=== PATIENT | male | born 1950 | race Caucasian/White ===

== ENCOUNTER → 2018-02-05 | Outpatient (REF) | LOC: ZLAB.WCH 14:30 | DX: Z01.89 Encounter for other specified special examinations (principal) ==

== ENCOUNTER → 2020-08-26 | Outpatient (CLI) | payer MEDICARE | LOC: COL.RAD 08:45 | DX: C61 Malignant neoplasm of prostate (principal) | CPT/HCPCS: A9503 ==

== ENCOUNTER → 2020-10-15 | Outpatient (CLI) | payer MEDICARE | LOC: COL.RAD 09:33 | DX: Z01.812 Encounter for preprocedural laboratory examination (principal); C61 Malignant neoplasm of prostate; E27.8 Other specified disorders of adrenal gland; M89.9 Disorder of bone, unspecified | CPT/HCPCS: Q9967 ==

== ENCOUNTER 2021-08-02 16:10 | Inpatient (IN) | payer MEDICARE ==
[~2021-08-02] VITALS: Ht 170.2 cm; Wt 98.7 kg
[2021-08-02 17:07] LABS: BASO % 0.6 % (0.0-2.0); EOS % 0.5 % (0.0-4.0); GRAN # 3.9 K/mm3 (1.4-6.5); GRAN % 59.4 % (42.2-75.2); HEMATOCRIT 50.9 % (42.0-52.0); HEMOGLOBIN 17.6 g/dl (13.5-18.0); LYMPH % 30.7 % (20.0-51.0); MEAN CELL VOLUME 85 fl (80.0-100.0); MEAN CORPUSCULAR HEMOGLOBIN 29 pg (27-31); MEAN CORPUSCULAR HGB CONC 35 g/dl (33.0-37.0); MEAN PLATELET VOLUME 11.3 fl (7.4-10.4); MONO # 0.6 K/mm3 (0.1-0.6); MONO % 8.6 % (1.7-9.3); PLATELET COUNT 151 K/mm3 (130-400); RED BLOOD COUNT 5.99 M/mm3 (4.20-5.60); REDCELL DISTRIBUTION WIDTH-CV 12.7 % (11.5-14.5)
[2021-08-02 17:14] LABS: INR 1.1 (0.8-3.0)
[2021-08-02 17:25] LABS: ALBUMIN 3.8 gm/dL (3.4-4.8); BILIRUBIN,TOTAL 1.1 mg/dL (0.2-1.2); CALCIUM 10.1 mg/dL (8.4-10.2); CREATININE, serum 1.38 mg/dL (0.72-1.25); POTASSIUM 3.3 mmol/L (3.5-4.5); TOTAL PROTEIN 7.8 gm/dL (6.2-8.1)
[2021-08-02 20:15] LABS: MAGNESIUM 1.5 mg/dL (1.6-2.6)
[2021-08-02 20:36] LABS: TSH w REFLEX 1.561 uIU/mL (0.350-4.940)
--- NOTE | 2021-08-02 21:18 | NUR ---
Received report from ROSA ISELA Brooks.
[2021-08-02 21:28] VITALS: BP 136/82; PULSE 81; TEMP 98.2
--- NOTE | 2021-08-02 21:28 | NUR ---
Patient arrives to ICU room 4 via ED stretcher. Patient is alert, oriented, and follows verbal commands. He is able to scoot self into ICU bed with minimal assistance. Initial vitals within normal limits. Arrives receiving Heparin at 1000 units/hr to a 20G peripheral IV to the left forearm and Cardene at 10 mg/hr to a 20G peripheral IV to the right forearm. Patient reports 2/10 dull pain to head and eyes, described as, "pressure." Denies needing PRN medication for pain management at this time. Bilateral feet noted to be dry, flaking, but otherwise intact. Groin area is reddened althought intact. Per patient, area is red due to chaffing. No other skin issues noted.
--- NOTE | 2021-08-02 22:00 | NUR ---
Patient's belongings include street clothes and shoes, a pair of glasses, a top denture plate, a wallet with no loose change or conrad inside, a cell phone, and a walker. Patient denies having hearing aids or any removable jewelry.
[2021-08-02] MEDS ORDERED: PROSCAR 5MG5 MG PO (22:07)
[2021-08-02] MEDS ORDERED: CELEBREX 1100 MG/CAP PO (22:07)
[2021-08-02] MEDS ORDERED: LIPITOR 10MG10 MG PO (22:08)
[2021-08-02] MEDS ORDERED: GLUCOPHAGE1000 MG PO (22:08)
[2021-08-02] MEDS ORDERED: NORVASC 10MG10 MG PO (22:08)
[2021-08-02] MEDS ORDERED: PROZAC 20MG20 MG PO (22:09)
[2021-08-02 22:35] VITALS: BP 145/94
[2021-08-03] VITALS (229 sets, daily range): BP systolic 132–157; BP diastolic 81–105; PULSE 68–79; TEMP 97.5–98.6; O2SAT 88–100
[2021-08-03 03:17] LABS: BASO % 0.2 % (0.0-2.0); EOS # 0.1 K/mm3 (0.0-0.7); EOS % 0.9 % (0.0-4.0); GRAN # 3.4 K/mm3 (1.4-6.5); GRAN % 54.2 % (42.2-75.2); HEMATOCRIT 44.8 % (42.0-52.0); LYMPH # 2.3 K/mm3 (1.2-3.4); LYMPH % 35.7 % (20.0-51.0); MEAN CELL VOLUME 84 fl (80.0-100.0); MEAN CORPUSCULAR HEMOGLOBIN 29 pg (27-31); MEAN CORPUSCULAR HGB CONC 35 g/dl (33.0-37.0); MEAN PLATELET VOLUME 10.8 fl (7.4-10.4); MONO # 0.6 K/mm3 (0.1-0.6); MONO % 8.8 % (1.7-9.3); PLATELET COUNT 123 K/mm3 (130-400); RED BLOOD COUNT 5.35 M/mm3 (4.20-5.60); REDCELL DISTRIBUTION WIDTH-CV 12.6 % (11.5-14.5)
[2021-08-03 03:31] LABS: CALCIUM 9.2 mg/dL (8.4-10.2); CREATININE, serum 1.25 mg/dL (0.72-1.25); MAGNESIUM 1.9 mg/dL (1.6-2.6)
[2021-08-03 03:33] LABS: HEMOGLOBIN 15.6 g/dl (13.5-18.0); POTASSIUM 2.6 mmol/L (3.5-4.5)
--- NOTE | 2021-08-03 09:43 | NUR ---
personal care worker attempted to contact patient via phone contact numbers listed and was unsuccessful. Attempt made to contact the patient's EC and got busy signal.
[2021-08-03 17:45] LABS: CALCIUM 9.4 mg/dL (8.4-10.2); CREATININE, serum 1.12 mg/dL (0.72-1.25); POTASSIUM 3.8 mmol/L (3.5-4.5)
[2021-08-04 00:33] VITALS: BP 152/95; PULSE 74; TEMP 99
[2021-08-04 04:15] VITALS: BP 163/108; PULSE 73; TEMP 99.1
[2021-08-04 06:30] LABS: CALCIUM 9.1 mg/dL (8.4-10.2); CHOLESTEROL RISK RATIO 3.7; CREATININE, serum 0.99 mg/dL (0.72-1.25); MAGNESIUM 1.6 mg/dL (1.6-2.6); POTASSIUM 3.4 mmol/L (3.5-4.5)
[2021-08-04 06:45] LABS: TROPONIN-I 0.061 ng/mL (0.00-0.033)
--- NOTE | 2021-08-04 07:00 | NUR ---
Critical troponin called to RHONDA Roberts, who read back the results.
[2021-08-04 07:17] VITALS: BP 175/102; PULSE 75; TEMP 99.3
--- NOTE | 2021-08-04 08:50 | NUR ---
ASSESSMENT COMPLETE FOR THIS SHIFT. PT RESTING IN BED SLEEPING. PT DENIED PAIN, PALPITATIONS, N,V,D, SOB OR DIZZINESS. PT ON HEPARIN DRIP. PT TOLERATING WELL. HEPARIN DRIP LEVEL RAISED THIS MORNING PER PROTOCOL. PT EXPRESSED NO OTHER NEEDS AT THIS TIME. CALL LIGHT WITHIN REACH.
[2021-08-04 11:02] VITALS: BP 144/99; PULSE 65; TEMP 98.3
--- NOTE | 2021-08-04 15:06 | NUR ---
Scheduled medications given. Shift assessment performed. Patient's BP elevated, Noam aware, BP medications adjusted. BP upon recheck was improved. All other VSS. Nursing Orders stated that patient had ACHS glucose checks, but no Insulin orders. Noam contacted, phone order repeat back for High scale Insulin recieved. Order placed. Patient is currently on RA. Denies any pain, discomfort, SOA, or further needs at this time. Call light in reach. Fall percuations in place. Patient A&O.
--- NOTE | 2021-08-04 16:14 | NUR ---
Circular Saw Filer contacted patient by room phone to discuss discharge planning. Patient lives alone in [place] and sees Dr. Azevedo for primary care. Patient states he cannot get to his appointment as he does not have transportation. Patient has medications mailed to him by [employer] and also has canes and walkers at home that he normally does not use. Patient reports independence with ADLS and plans to return home upon discharge. Patient states his friend Timothy will pick him up. Patient states his sister in law, Yanelis is his DPOA-HC. Patient is not and has eleven children that he is not in regular contact with. When asked to name his children, patient began mumbling and states they have their own lives. SW contacted Yanelis and left a message. CELESTE will follow up with Dr. Azevedo's office to discuss transportation resources. Discharge Plan: Home
[2021-08-04 16:16] VITALS: BP 129/84; PULSE 70; TEMP 98.2
[2021-08-04 21:06] VITALS: BP 146/79; PULSE 70; TEMP 98.4
[2021-08-05] VITALS (9 sets, daily range): BP systolic 121–168; BP diastolic 73–96; PULSE 63–78; TEMP 97.9–98.8
[2021-08-05 06:18] LABS: CALCIUM 9.6 mg/dL (8.4-10.2); CREATININE, serum 1.04 mg/dL (0.72-1.25); MAGNESIUM 1.6 mg/dL (1.6-2.6); POTASSIUM 3.7 mmol/L (3.5-4.5)
[2021-08-05] MEDS ORDERED: LOPRESSOR 550 MG/TAB PO (10:00)
[2021-08-05] MEDS ORDERED: LIPITOR 40MG TA40 MG PO (10:00)
[2021-08-05] MEDS ORDERED: ASPIRIN 81M81 MG/TA2 PO (10:01)
[2021-08-05] MEDS ORDERED: ZESTRIL 10MG10 MG PO (10:01)
[2021-08-05] MEDS ORDERED: NORVASC 10MG10 MG PO (10:40)
--- NOTE | 2021-08-05 11:13 | NUR ---
Policyholder Information Clerk collaborated with Carolina Policyholder Information Clerk at PCP office to discuss patient's transportation barriers. CELESTE then provided patient's RN, Carolina with a application for [facility] transport to provide to patient. Patient reported to his nurse he may have issues securing a ride home. CELESTE contacted patient's emergency contact number (ph#[phone]) and spoke with Basia who advised she is patient's nephew's girlfriend. Patient's nephew is Cornel (ph#[phone]). Basia advised they can give patient a ride at time of discharge. CELESTE then collaborated with Armando Cason who advised patient will likely need a med voucher for a ten day supply of new meds until [employer] is able to mail out patient's new medications.
--- NOTE | 2021-08-05 13:42 | NUR ---
Patient verbalized to his RN that with his history of "colon" cancer that he does not feel as if he can take care of himself at home and is wanting placed at an AL facility. Phone call made to RHONDA Bedolla to place a palliative consult. Goals of care needs to be addressed and there are conflicting reports to what type of cancer the patient has.
--- NOTE | 2021-08-05 14:05 | NUR ---
Phone call made to Dr. River nurse for clinical history
--- NOTE | 2021-08-05 15:46 | NUR ---
Call made to patient on room phone as he is under covid precautions. He states that he is concerned about getting someone sick since he has covid but really feels like he needs more help at home. He states he wants to go home but is also is open to SNF, AL, or home health but states he really just needs help with laundry and housekeeping. Patient reports that finances are a concern as he is on a limited income but also doesn't feel completely safe [place] Patient also reports he has no family around and minimal friends that would be able to help him move if that were something he wanted. I discussed the various levels of care and told him that I would work with SW to get him more specific options about nursing care or companionship once discharged. Notified SW of the discussion as well. Patient also confirmed that he has/had prostate cancer and saw Dr. Nowak but is not undergoing and active treatment and hasn't seen the doctor in a long time.
[2021-08-06 04:12] VITALS: BP 150/84; PULSE 66; TEMP 98.8
[2021-08-06 06:14] LABS: BASO % 0.6 % (0.0-2.0); EOS # 0.1 K/mm3 (0.0-0.7); EOS % 1.7 % (0.0-4.0); GRAN % 56.4 % (42.2-75.2); HEMATOCRIT 48.2 % (42.0-52.0); HEMOGLOBIN 16.6 g/dl (13.5-18.0); LYMPH # 2.3 K/mm3 (1.2-3.4); MEAN CELL VOLUME 86 fl (80.0-100.0); MEAN CORPUSCULAR HEMOGLOBIN 30 pg (27-31); MEAN CORPUSCULAR HGB CONC 34 g/dl (33.0-37.0); MEAN PLATELET VOLUME 11.6 fl (7.4-10.4); MONO # 0.6 K/mm3 (0.1-0.6); PLATELET COUNT 129 K/mm3 (130-400); RED BLOOD COUNT 5.62 M/mm3 (4.20-5.60); REDCELL DISTRIBUTION WIDTH-CV 12.8 % (11.5-14.5)
[2021-08-06 06:18] LABS: CALCIUM 9.4 mg/dL (8.4-10.2); CREATININE, serum 1.03 mg/dL (0.72-1.25); POTASSIUM 3.7 mmol/L (3.5-4.5)
[2021-08-06 08:45] VITALS: BP 156/92; PULSE 70; TEMP 98.6
--- NOTE | 2021-08-06 09:10 | NUR ---
PT ASSESSED. NO COMPLAINTS OF PAIN OR DYSPNEA. NO SIGNS OR SYMPTOMS OF DISTRESS. CALL LIGHT WITHIN REACH
[2021-08-06 09:56] VITALS: BP 149/96; PULSE 65; TEMP 98
[2021-08-06 09:57] VITALS: BP 144/91; PULSE 71; TEMP 98
[2021-08-06 10:01] VITALS: BP 139/91; PULSE 78; TEMP 98
--- NOTE | 2021-08-06 10:53 | NUR ---
Patient discharging back home today with HH services through [facility]. Request made for Pt/OT and Skilled orders. Patient in need of perscription voucher for new medications ( Lipitor $10.67, Lopressor $10.89, Zestril $10.18, Aspirin Chewable $5.00 Total cost $36.74)- Medication voucher faxed to [facility] for 10 day supply due to the patient getting his medications through [facility]. New perscriptions faxed to [facility] at [phone] on behalf of hospitalistMadhu Flor ( his nephew's girlfriend) contacted who states that they are still able to pick this patient up today and can be at the hospital within 30 minutes. Patient's RN notified of the above and is agreeable. Discharge plan: Home with [facility] HH; Medication voucher for new perscriptions faxed to [employer].
--- NOTE | 2021-08-06 11:50 | NUR ---
PT DISCHARGE TEACHING COMPLETE. ALL QUESTIONS ANSWERED. IV REMOVED X2. INSTRUCTIONS GIVEN FOR MEDICATIONS AND COLLOW UP APPOINTMENTS.
== END 2021-08-06 11:52 | disposition home health service (06) | DRG 280 ==
LOC: COL.ER 16:10 → ICU 19:47 → MEDICAL 08-03 17:15
PROVIDERS: Family Medicine; Internal Medicine Pulmonary Disease; Student in an Organized Health Care Education/Training Program; ADMIT Internal Medicine
DX: I16.0 Hypertensive urgency (principal); U07.1 COVID-19; I21.A1 Myocardial infarction type 2; N17.9 Acute kidney failure, unspecified; I10 Essential (primary) hypertension; E11.9 Type 2 diabetes mellitus without complications; E78.5 Hyperlipidemia, unspecified; N40.0 Benign prostatic hyperplasia without lower urinary tract symptoms; G89.29 Other chronic pain; M54.50 Low back pain, unspecified; E87.6 Hypokalemia; K21.9 Gastro-esophageal reflux disease without esophagitis; F32.A Depression, unspecified; Z85.46 Personal history of malignant neoplasm of prostate; Z87.891 Personal history of nicotine dependence; Z79.84 Long term (current) use of oral hypoglycemic drugs
CPT/HCPCS: OP; 99232-AI; 99233-AI; 99239; G0378; J1644; J1650; J2550; J3475; J3480; J7030; J7040; J7050; Q9967

== ENCOUNTER 2022-08-16 03:55 | Inpatient (IN) | payer MEDICARE, MEDICAID ==
[~2022-08-16] VITALS: Ht 170.2 cm; Wt 102.1 kg
[2022-08-16] VITALS (7 sets, daily range): BP systolic 170–197; BP diastolic 89–113; PULSE 80–102; TEMP 97.8–98.7
[~2022-08-16 03:55] MED LIST: ASPIRIN 81M81 MG/TA2 PO; CELEBREX 1100 MG/CAP PO; GLUCOPHAGE1000 MG PO; LIPITOR 10MG10 MG PO; LIPITOR 40MG TA40 MG PO; LOPRESSOR 550 MG/TAB PO; NORVASC 10MG10 MG PO; PROSCAR 5MG5 MG PO; PROZAC 20MG20 MG PO; ZESTRIL 10MG10 MG PO
[2022-08-16 04:31] LABS: BASO % 0.2 % (0.0-2.0); EOS # 0.1 K/mm3 (0.0-0.7); EOS % 0.6 % (0.0-4.0); GRAN # 11.4 K/mm3 (1.4-6.5); GRAN % 84.3 % (42.2-75.2); LYMPH % 7.4 % (20.0-51.0); MEAN CELL VOLUME 86 fl (80.0-100.0); MEAN CORPUSCULAR HEMOGLOBIN 30 pg (27-31); MEAN CORPUSCULAR HGB CONC 35 g/dl (33.0-37.0); MEAN PLATELET VOLUME 10.8 fl (7.4-10.4); MONO % 7.1 % (1.7-9.3); PLATELET COUNT 146 K/mm3 (130-400); RED BLOOD COUNT 5.01 M/mm3 (4.20-5.60); REDCELL DISTRIBUTION WIDTH-CV 13.1 % (11.5-14.5)
[2022-08-16 04:45] LABS: INR 1.1 (0.8-3.0); PROTHROMBIN TIME 12.9 SECONDS (9.7-12.8)
[2022-08-16 04:47] LABS: ALBUMIN 3.4 gm/dL (3.4-4.8); BILIRUBIN,TOTAL 0.8 mg/dL (0.2-1.2); CALCIUM 10.4 mg/dL (8.4-10.2); CREATININE, serum 1.47 mg/dL (0.72-1.25); POTASSIUM 3.1 mmol/L (3.5-4.5)
[2022-08-16 04:58] LABS: TROPONIN-I 0.042 ng/mL (0.00-0.033)
[2022-08-16 05:58] LABS: COLLECTION METHOD CLEAN CATCH
[2022-08-16 06:09] LABS: PH 6.5 (5.0-8.5); URINE APPEARANCE Clear (CLEAR/HAZY); URINE COLOR Yellow (YELLOW)
[2022-08-16 06:10] LABS: URINE BLOOD TRACE-INTACT (NEGATIVE); URINE GLUCOSE 1+ (NEGATIVE); URINE KETONE Negative (NEGATIVE); URINE NITRATE Negative (NEGATIVE); URINE PROTEIN(semi-quant) 1+ (NEGATIVE); URINE UROBILINOGEN 0.2 E.U/dL (0.2-1.0)
[2022-08-16 06:23] LABS: SQUAMOUS EPITHELIAL None Seen /hpf (0-10); URINE BACTERIA None Seen /hpf (NONE SEEN); URINE RBC 0-2 /hpf (0-2)
--- NOTE | 2022-08-16 09:29 | NUR ---
Patient arrived to the unit from ER at 0908. Patient alert and oriented. Patient moaning in severe pain and c/o pain at right hip. Patient sustained a fall this morning. Patient has history of HTN, high cholestrol and have had back surgery and head injury.Noted bruise on the right hip from fall. Patient oriented to room and the use of call brooks. Patient instructed to stay in bed and call for help when needed. Patient rated pain level 10/10.
--- NOTE | 2022-08-16 09:55 | NUR ---
Patient c/o severe pain at right hip and rated pain level 10/10. Morphine 2mg administered per PRN order for pain. See e-mar for documentation.
--- NOTE | 2022-08-16 11:26 | NUR ---
Apresoline administered for elevated B/P of 179/90. Patient reports of decrease in pain level. Patient rated pain level 4/10. Will continue to monitor patient.
--- NOTE | 2022-08-16 12:31 | NUR ---
Patient in bed moaning and screaming in pain. Patient c/o severe pain at right hip. Morphine administered per prn orders. Will reassess pain level. Call brooks within reach.
--- NOTE | 2022-08-16 12:44 | NUR ---
Patient still screamning and moaning in pain states "medicine doesn't work and in severe pain". Dr. Pompa was notified and ordered to give PRN roxicodone. 10mg of roxicodone administered. See e-mar for documentation. Will continue to monitor patient's pain level. Call brooks within reach.
--- NOTE | 2022-08-16 13:20 | NUR ---
I called to follow up on order for patient having Echo done before surgery. records tech states that they are on their way to patient's room.
--- NOTE | 2022-08-16 13:29 | NUR ---
agriculture laboratory technician at the bedside at 13:28.
--- NOTE | 2022-08-16 17:04 | NUR ---
Patient c/o pain at right hip , morphine administered per orders. See e-mar for documentation.
--- NOTE | 2022-08-16 18:32 | NUR ---
Patient has elevated B/P of 197/113, Kenzie Ty notified. PRN Apresoline administered at 1825. Will recheck B/P. Patient resting in bed and not in any distress. Call brooks within reach. Regular served, patient states he is not hungry at the moment and will eat later.
--- NOTE | 2022-08-16 19:40 | NUR ---
PT MOANING IN PAIN, TRIES TO MOVE RT LEG CAUSING SEVERE PAIN. REMINDED PT HIS HIP IS FRACTURED. OXYCODONE 10MG PO NOW. IVF TO LT WRIST. PT VOIDING PER URINAL.
--- NOTE | 2022-08-16 20:30 | NUR ---
DR BUTLER ROUNDS ON PT, ASKS THAT PT REPORTS HE HAS LOSS OF BALANCE EVERY 2-3 DAYS BE DOCUMENTED AND REPORTED TO HOSPITALISTS.
--- NOTE | 2022-08-16 21:04 | NUR ---
PT COMPLAINS OF CONSTANT PAIN TO RT HIP. OFFERED WYLIE CATHETER SO PT DIDN'T HAVE TO MOVE TO VOID, REFUSES AT THIS TIME. MEDICATED WITH MORPHINE 2MG IVP GIVEN FOR PAIN.
[2022-08-17] VITALS (13 sets, daily range): BP systolic 100–182; BP diastolic 64–93; PULSE 72–97; TEMP 97.8–99.1
--- NOTE | 2022-08-17 00:13 | NUR ---
PT MOANING IN PAIN. STILL TRYING TO MOVE LEG. MEDICATED WITH OXYCODONE 10MG PO AND MORPHINE 2MG IVP AT THIS TIME.
--- NOTE | 2022-08-17 01:15 | NUR ---
SPOKE WITH GARY GUTIERRES REGARDING PT CONTINUED COMPLAINT OF PAIN. NEW ORDER TO DC MORPHINE, DILAUDID 0.5MG Q2 PRN.
--- NOTE | 2022-08-17 01:20 | NUR ---
DILAUDID 0.5MG IVP GIVEN, NEW ICE PACK PLACED TO RT HIP. STRONGLY ENCOURAGED PT TO STOP TRYING TO MOVE RT LEG D/T FRACTURE. IS NPO FOR POSSIBLE SURGERY.
--- NOTE | 2022-08-17 02:00 | NUR ---
PT RESTING QUIETLY AT THIS TIME.
--- NOTE | 2022-08-17 03:19 | NUR ---
PT MOANING IN PAIN, DILAUDID 0.5MG IVP GIVEN AT THIS TIME.
[2022-08-17 07:26] LABS: BASO % 0.3 % (0.0-2.0); EOS # 0.6 K/mm3 (0.0-0.7); EOS % 4.3 % (0.0-4.0); GRAN # 10.5 K/mm3 (1.4-6.5); GRAN % 80.3 % (42.2-75.2); HEMATOCRIT 47.1 % (42.0-52.0); HEMOGLOBIN 15.8 g/dl (13.5-18.0); LYMPH # 1.1 K/mm3 (1.2-3.4); LYMPH % 8.6 % (20.0-51.0); MEAN CELL VOLUME 89 fl (80.0-100.0); MEAN CORPUSCULAR HEMOGLOBIN 30 pg (27-31); MEAN CORPUSCULAR HGB CONC 34 g/dl (33.0-37.0); MEAN PLATELET VOLUME 11.3 fl (7.4-10.4); MONO # 0.8 K/mm3 (0.1-0.6); MONO % 6.2 % (1.7-9.3); PLATELET COUNT 129 K/mm3 (130-400); REDCELL DISTRIBUTION WIDTH-CV 13.2 % (11.5-14.5)
[2022-08-17 07:54] LABS: CALCIUM 10.1 mg/dL (8.4-10.2); CREATININE, serum 1.1 mg/dL (0.72-1.25); POTASSIUM 3.4 mmol/L (3.5-4.5)
--- NOTE | 2022-08-17 09:20 | NUR ---
Pt. laying in bed. Pt. is A&OX3, assessment complete. IV to lt. wrist patent. Pt. reports pain at a 9 on pain scale after having dilaudid. Pt.'s BP is still elevated. Talked with Dr. Pompa on this. Giving am PO meds and will recheck BP. Also give oral pain medication. Pt. denies further needs, call light within reach.
--- NOTE | 2022-08-17 13:24 | NUR ---
Home Care Chaplain met with patient to attempt to discuss discharge planning. Patient had difficulty keeping his eyes open and was focused on the pain in his leg. Patient did answer a couple intake questions briefly. Patient lives alone in [place] and sees Dr. Azevedo for primary care. Patient denies having any current home health. Patient denies having DPOA-HC, but stated his friend Timothy is like a brother to him and a good contact. SW inquired about patient' sister in Yanelis chaudhari (ph#[phone]) but patient stated she has requested not to be contacted anymore. SW discussed the possibility of post acute rehab with patient who stated he plans to return home at time of discharge. Patient to have surgery today. CELESTE contacted Carolina, Home Care Chaplain at patient's primary care office who advised patient does not have Advance Directives. Patient's chart listed his sister in Yanelis chaudhari and niece, Zoe Calderon (ph#[phone]) as contacts. Carolina advised patient has [employer] as a secondary. CELESTE emailed financial team to seek clarification on if patient has traditional medicare vs a medicare advantage plan. CELESTE also provided ID number to patient's [employer] [place] plan. Discharge Plan: Surgery today, PT/OT to [facility]
--- NOTE | 2022-08-17 19:00 | NUR ---
PT DROWSY BUT WAKES TO NAME. ENC PT TO EAT SOME DINNER. HOB. IV NS AT 75CC/HR AND K+ PER PROTOCOL GIVEN. O2 4L O2 PER NC. SEE VITALS. PAIN TO RT HIP LEVE 09/08 AT THIS TIME. CALL LIGHT IN REACH. BED ALARM SET.
[2022-08-18] VITALS (7 sets, daily range): BP systolic 125–153; BP diastolic 74–87; PULSE 67–77; TEMP 97–98.8
--- NOTE | 2022-08-18 04:51 | NUR ---
NEW ICE PACK TO RT HIP. DRSG CDI. NO NEEDS AT THSI TIME. PAIN CONTROLLED.
[2022-08-18 06:17] LABS: BASO % 0.1 % (0.0-2.0); GRAN # 11.8 K/mm3 (1.4-6.5); HEMATOCRIT 40.9 % (42.0-52.0); HEMOGLOBIN 13.9 g/dl (13.5-18.0); LYMPH # 0.8 K/mm3 (1.2-3.4); MEAN CELL VOLUME 89 fl (80.0-100.0); MEAN CORPUSCULAR HEMOGLOBIN 30 pg (27-31); MEAN CORPUSCULAR HGB CONC 34 g/dl (33.0-37.0); MEAN PLATELET VOLUME 11.3 fl (7.4-10.4); MONO # 0.4 K/mm3 (0.1-0.6); MONO % 3.4 % (1.7-9.3); PLATELET COUNT 134 K/mm3 (130-400); RED BLOOD COUNT 4.61 M/mm3 (4.20-5.60); REDCELL DISTRIBUTION WIDTH-CV 13.2 % (11.5-14.5)
[2022-08-18 06:41] LABS: CALCIUM 9.7 mg/dL (8.4-10.2); CREATININE, serum 1.8 mg/dL (0.72-1.25); POTASSIUM 4.1 mmol/L (3.5-4.5)
--- NOTE | 2022-08-18 07:15 | NUR ---
Received shift report from the night nurseHilaria RN
--- NOTE | 2022-08-18 08:45 | NUR ---
Patient resting in bed alert and oriented. Tele monitor intact. Dressing to right thigh dry and intact. IVF infusing without difficulty. Patient encourage to use incentive spirometer as instructed. Patient verbalized understanding. Patient denies pain at this time.
--- NOTE | 2022-08-18 09:29 | NUR ---
Physical therapist at the bedside assisted patient to the recliner . Patient tolerated it well.
--- NOTE | 2022-08-18 09:36 | NUR ---
0635 Report recieved from primary nurse Zoe at this time. Discussed plan of care and care coordination with primary nurse Zoe. Gianna, student RN.
--- NOTE | 2022-08-18 09:42 | NUR ---
0700 Assessment completed (see Shift assessment). Patient denies pain at this time. Discussed plan of care, patient agreeable. All questions answered. Call light within reach. Will continue to monitor.
--- NOTE | 2022-08-18 09:45 | NUR ---
0700 Assessment completed of eyes. Left eye is nonreactive. Patient stated "my left eye doesn't work because my blood pressure took it out a few years ago". Patient right eye is reactive to light, round and accommodates.
--- NOTE | 2022-08-18 13:26 | NUR ---
Brush Holder Assembler met with patient to review discharge plan. PT is recommending IPR and patient is agreeable to this. SW also spoke with patient about creating DPOA-HC. Patient is interested in this but would like time to consider who he would appoint. SW collaborated with Deb to verify patient has Medicare A/B, with a [employer] prescription plan. SW gave referral to IPR. Annita, IPR Director can accept whenever patient is medically ready. Discharge Plan: IPR
--- NOTE | 2022-08-18 13:32 | NUR ---
Patient refused to eat lunch stating that he's not hungry and will wait for dinner.
[2022-08-18] MEDS ORDERED: XALATAN EYE DROPS OD (14:41)
--- NOTE | 2022-08-18 18:47 | NUR ---
Patient sitting in bed eating dinner, c/o headache. Patient states headache is due to not eaten lunch. VSS stable and not in any distress. Patient encourgage to eat dinner.
--- NOTE | 2022-08-18 20:00 | NUR ---
PT RESTING IN BED. A&OX4. IV D5LR AT 75CC/HR TO RT HAND. NO RESP DISTRESS. ATTEMPTED TO INSTRUCTOPER WAY TO USE INCENETIVE SPIROMETER. AFTER PT RAPIDLY INHALED SEVERAL TIMES. NURSE DEMONSTRATED USE. PT REALATED "MANOHAR BEEN BREATHING JUST FINE FOR 70 YRS AND I DONT NEED ANYONE TO SHOW ME. PROVIDED RATIONALE. PT REFUSED. RT HIP DRSG CDI. DARK ECCYMOSIS NOTED UNDER DRSG. MADISON JOHNNY AND SCD'D ON. PLACED NEW ICE PACK TO RT HIP. PAIN UNDER CONTROL AT THIS TIME. CALL LIGHT IN REACH. BED ALARM SET FOR FALL PRECAUTIONS.
--- NOTE | 2022-08-19 03:25 | NUR ---
IVF'S DC'D. TAKING PO FLUIDS WELL. VOIDING MOD AMTS. CALLED MIGUEL BALLESTEROS FOR PT'S C/O "ITCHING ALL OVER" PER SENIOR EXECUTIVE ASSISTANT REPORT. NEW ORDER FOR JOSEPH. SEE MAR.
[2022-08-19 03:48] VITALS: BP 164/88; PULSE 65; TEMP 98.7
--- NOTE | 2022-08-19 07:26 | NUR ---
Received shift report from the night nurseHilaria RN
[2022-08-19 07:44] VITALS: BP 174/78; PULSE 74; TEMP 97.7
--- NOTE | 2022-08-19 09:04 | NUR ---
Patient up walking from the bed to the recliner with physical therapist design assistant. Assessment performed, gauze dressing to the right hip dry and intact. Patient denies pain at this time. Patient's B/P elevated and apresoline administered per PRN orders. Will recheck patient's B/P. Call brooks within reach.
[2022-08-19 09:40] LABS: BASO % 0.3 % (0.0-2.0); EOS # 0.2 K/mm3 (0.0-0.7); EOS % 1.2 % (0.0-4.0); GRAN # 12.2 K/mm3 (1.4-6.5); GRAN % 83.3 % (42.2-75.2); HEMOGLOBIN 14.6 g/dl (13.5-18.0); LYMPH # 1.3 K/mm3 (1.2-3.4); LYMPH % 8.7 % (20.0-51.0); MEAN CELL VOLUME 92 fl (80.0-100.0); MEAN CORPUSCULAR HEMOGLOBIN 30 pg (27-31); MEAN CORPUSCULAR HGB CONC 33 g/dl (33.0-37.0); MEAN PLATELET VOLUME 11.3 fl (7.4-10.4); MONO # 0.8 K/mm3 (0.1-0.6); MONO % 5.6 % (1.7-9.3); PLATELET COUNT 153 K/mm3 (130-400); REDCELL DISTRIBUTION WIDTH-CV 13.3 % (11.5-14.5)
[2022-08-19 09:56] LABS: CREATININE, serum 1.54 mg/dL (0.72-1.25); POTASSIUM 4.2 mmol/L (3.5-4.5)
[2022-08-19 11:27] VITALS: BP 144/76; PULSE 62; TEMP 97.6
[2022-08-19 15:53] VITALS: BP 150/92; PULSE 67; TEMP 98.1
--- NOTE | 2022-08-19 17:45 | NUR ---
Patient resting in bed and awaken to eat dinner. Patient states he's not feeling hungry and does not want to eat dinner.
[2022-08-19 19:30] VITALS: BP 169/94; PULSE 75; TEMP 98
--- NOTE | 2022-08-19 21:28 | NUR ---
PT RESTING IN BED. REPOSITIONED TO TOP OF BED. BP 169/94. GAVE SCHEDULED METOPROLOL. PAIN CONTROLLED WITH SCHEDULE TYLENOL. BONNIE HOSE TAKEN OFF. SCD'S ON BILAT. CALL LIGHT IN REACH. BED ALARM SET.
--- NOTE | 2022-08-19 22:15 | NUR ---
PT AWAKE. PT RELATED HE'S "GOING CRAZY IN HERE". "TOO QUIET. ENC TO TURN TV ON. PT RELATED THAT WAS NOT WAS HE WANTED TO HEAR. VERY NONSPECIFIC. PT TURNED TV ON. GAVE SCHEDULED TYLENOL. PT AGREED TO MELATONIN.
[2022-08-19 23:21] VITALS: BP 169/88; PULSE 69; TEMP 97.4
[2022-08-20 04:12] VITALS: BP 172/87; PULSE 77; TEMP 98.4
[2022-08-20 06:36] LABS: BASO % 0.4 % (0.0-2.0); EOS # 0.4 K/mm3 (0.0-0.7); EOS % 3.6 % (0.0-4.0); GRAN # 8.2 K/mm3 (1.4-6.5); GRAN % 75.3 % (42.2-75.2); HEMATOCRIT 46.3 % (42.0-52.0); HEMOGLOBIN 15.6 g/dl (13.5-18.0); LYMPH # 1.1 K/mm3 (1.2-3.4); LYMPH % 10.5 % (20.0-51.0); MEAN CELL VOLUME 89 fl (80.0-100.0); MEAN CORPUSCULAR HEMOGLOBIN 30 pg (27-31); MEAN CORPUSCULAR HGB CONC 34 g/dl (33.0-37.0); MEAN PLATELET VOLUME 11.6 fl (7.4-10.4); MONO # 1.1 K/mm3 (0.1-0.6); MONO % 9.6 % (1.7-9.3); PLATELET COUNT 177 K/mm3 (130-400); RED BLOOD COUNT 5.23 M/mm3 (4.20-5.60); REDCELL DISTRIBUTION WIDTH-CV 13.1 % (11.5-14.5)
[2022-08-20 06:50] LABS: CALCIUM 10.3 mg/dL (8.4-10.2); CREATININE, serum 1.09 mg/dL (0.72-1.25); POTASSIUM 3.3 mmol/L (3.5-4.5)
--- NOTE | 2022-08-20 06:50 | NUR ---
in bed dozing at intervals, bedside shift report received from ROSA ISELA Manrique
[2022-08-20 07:46] VITALS: BP 195/92; PULSE 75; TEMP 98
--- NOTE | 2022-08-20 08:20 | NUR ---
appears to be dozing, awakened and am meds given, Dr Karyn Peck notified of his BP, will recheck in 1 hour after meds given, physical therapy in to work with patient
--- NOTE | 2022-08-20 09:00 | NUR ---
full assessment completed, see interventions for further info,
[2022-08-20] MEDS ORDERED: LOPRESSOR100 MG PO (09:22)
[2022-08-20] MEDS ORDERED: ASPI325T6 PO (09:23)
[2022-08-20] MEDS ORDERED: ZESTRIL 20MG TA20 MG PO (09:23)
[2022-08-20] MEDS ORDERED: ROXICODONE 55 MG/TAB PO (09:24)
[2022-08-20] MEDS ORDERED: TYLENOL 500MG500 MG PO (09:24)
[2022-08-20] MEDS ORDERED: NARCAN .4MG0.4 MG/ML IV (09:24)
[2022-08-20] MEDS ORDERED: DULCOLAX S10 MG/SUPP RC (09:25)
[2022-08-20] MEDS ORDERED: OSCAL 500 TAB500 MG PO (09:25)
[2022-08-20] MEDS ORDERED: GOOD NEIGH1200 MG/15 PO (09:26)
[2022-08-20] MEDS ORDERED: SENEXON-S 50-81 EACH PO (09:26)
[2022-08-20] MEDS ORDERED: VITAMIN C500 MG PO (09:27)
[2022-08-20] MEDS ORDERED: MELATIN 3 MG-11 TAB PO (09:27)
[2022-08-20] MEDS ORDERED: DUO-KAPS1 CAP PO (09:27)
[2022-08-20 09:29] VITALS: BP 159/83; PULSE 78
--- NOTE | 2022-08-20 10:15 | NUR ---
resting in bed, awakened and given meds as scheduled, discussed he would be going to IPR today, verbalizes understanding
--- NOTE | 2022-08-20 10:37 | NUR ---
discharged and transferred to [facility] room 335
--- NOTE | 2022-08-20 10:50 | NUR ---
discharged per WC to IPR room 335
--- NOTE | 2022-08-20 10:51 | NUR ---
Patient to discharge to [facility] today.
== END 2022-08-20 10:51 | DRG 480 ==
LOC: COL.ER 03:55 → SURG 08:08
PROVIDERS: Emergency Medicine; Internal Medicine; Orthopaedic Surgery; Physician Assistant; ADMIT Student in an Organized Health Care Education/Training Program
PROC: 0QS634Z Reposition Right Upper Femur with Internal Fixation Device, Percutaneous Approach (ICD-10-PCS; principal; 2022-08-17 13:00)
DX: S72.011A Unspecified intracapsular fracture of right femur, initial encounter for closed fracture (principal); I21.A1 Myocardial infarction type 2; N17.9 Acute kidney failure, unspecified; I16.0 Hypertensive urgency; I10 Essential (primary) hypertension; F32.A Depression, unspecified; N40.0 Benign prostatic hyperplasia without lower urinary tract symptoms; E78.5 Hyperlipidemia, unspecified; E87.6 Hypokalemia; K21.9 Gastro-esophageal reflux disease without esophagitis; D72.829 Elevated white blood cell count, unspecified; E11.65 Type 2 diabetes mellitus with hyperglycemia; M19.90 Unspecified osteoarthritis, unspecified site; W01.0XXA Fall on same level from slipping, tripping and stumbling without subsequent striking against object, initial encounter; Z85.46 Personal history of malignant neoplasm of prostate; Z90.49 Acquired absence of other specified parts of digestive tract; Z79.82 Long term (current) use of aspirin; Z79.84 Long term (current) use of oral hypoglycemic drugs; Z91.030 Bee allergy status; Z85.038 Personal history of other malignant neoplasm of large intestine; Z86.16 Personal history of COVID-19; Y92.89 Other specified places as the place of occurrence of the external cause; Z91.14 Patient's other noncompliance with medication regimen; Z23 Encounter for immunization
CPT/HCPCS: A9284; C1713; J0360; J0690; J1100; J1170; J2270; J2405; J2704; J2795; J3010; J3475; J3480; J7030; J7120; J7121

== ENCOUNTER 2022-08-18 17:28 | Inpatient (IN) | payer MEDICARE, MEDICAID ==
[~2022-08-18] VITALS: Ht 170.2 cm; Wt 98.2 kg
[~2022-08-18 17:28] MED LIST changes: +XALATAN EYE DROPS OD
[2022-08-20] MEDS ORDERED: LOPRESSOR100 MG PO (09:22)
[2022-08-20] MEDS ORDERED: ASPI325T6 PO (09:23)
[2022-08-20] MEDS ORDERED: ZESTRIL 20MG TA20 MG PO (09:23)
[2022-08-20] MEDS ORDERED: ROXICODONE 55 MG/TAB PO (09:24)
[2022-08-20] MEDS ORDERED: TYLENOL 500MG500 MG PO (09:24)
[2022-08-20] MEDS ORDERED: NARCAN .4MG0.4 MG/ML IV (09:24)
[2022-08-20] MEDS ORDERED: DULCOLAX S10 MG/SUPP RC (09:25)
[2022-08-20] MEDS ORDERED: OSCAL 500 TAB500 MG PO (09:25)
[2022-08-20] MEDS ORDERED: SENEXON-S 50-81 EACH PO (09:26)
[2022-08-20] MEDS ORDERED: GOOD NEIGH1200 MG/15 PO (09:26)
[2022-08-20] MEDS ORDERED: VITAMIN C500 MG PO (09:27)
[2022-08-20] MEDS ORDERED: MELATIN 3 MG-11 TAB PO (09:27)
[2022-08-20] MEDS ORDERED: DUO-KAPS1 CAP PO (09:27)
--- NOTE | 2022-08-20 10:51 | NUR ---
arrived per WC from surgical unit
[2022-08-20 11:22] VITALS: BP 154/92; PULSE 65; TEMP 98.1
--- NOTE | 2022-08-20 11:45 | NUR ---
entered room and patient was back in bed after being assisted to bathroom, informed him he must wait for someone to help him out of bathroom that he is not to be independent, verbalizes understanding, informed staff that we must stay with him until he is finished in bathroom
--- NOTE | 2022-08-20 13:00 | NUR ---
he again started to get up independently, explained again he must call for help, bed alarm on
--- NOTE | 2022-08-20 14:40 | NUR ---
assisted up to bathroom and voids qs, then back to bed
--- NOTE | 2022-08-20 15:50 | NUR ---
c/o some pain to right hip, medicated with scheduled tylenol
[2022-08-20 17:42] VITALS: BP 169/99; PULSE 77; TEMP 98.1
--- NOTE | 2022-08-20 18:55 | NUR ---
shift report given to ROSA ISELA Manrique
--- NOTE | 2022-08-20 19:45 | NUR ---
BED ALARM SOUNDING. PT SITTING ON SIDE OF BED. PT IS NAKED. PROVIDED XL GOWN AND HELP PT PUT IT ON. ASSISTED TO BR. VOIDING CLEAR YELLOW URINE. PT VOIDING FREQUENTLY AND URGENCY. PT DENIES BURNING OR FLANK PAIN. NO FEVER. PT VERY TIRED. SEEMS SOMEWHAT LETHARGIC. ANSWER QUESTIONS APPROPRIATE. NEEDS CUING FOR SAFETY. SEE VSS. ASSISTED BACK TO BED. ABLE TO BRING LEGS. BED ALARM SET. REVIEWED SAFETY PRECAUTIONS. CALL LIGHT IN REACH.
--- NOTE | 2022-08-20 20:15 | NUR ---
ALARM SOUNDING . PT SITTING ON SIDE OF BED. NEEDING TO VOID. PT HAD TAKEN GOWN OFF AGAIN. ASSIST TO BR WITH WALKER. BACK TO BED. ENC PT TO KEEP GOWN ON.
[2022-08-20 20:59] VITALS: BP 166/95; PULSE 77; TEMP 98.6
--- NOTE | 2022-08-21 00:49 | NUR ---
PT USED CALL LIGHT AND WAITED FOR ASSIST. ASSISTED TO BR W/ WALKER. DENIES PAIN. PT RELATES HE HAS HX OF PROSTATE CA HE VOIDS FREQUENTLY W/ URGENCY. BRIEFS FOR URINARY DRIBBLES. CALL LIGHT IN REACH. BED ALARM SET.
--- NOTE | 2022-08-21 01:48 | NUR ---
ASSISTED TO BR WITH WALKER. VOIDED AGAIN. PT RELATED HAS NO ONE TO BRING HIM CLOTHES. RELATES CHILDREN LIVE OUT OF STATE AND DONT KNOW HE IS IN THE HOSPITAL.
[2022-08-21 05:00] VITALS: BP 184/92; PULSE 72; TEMP 98.2
--- NOTE | 2022-08-21 06:11 | NUR ---
PT SLEEPING AT THIS TIME. PT HAS NOT SLEPT MUCH THROUGH THE SHIFT D/T FREQ URINATION WITH URGENCY. URINE REMAINS DILUTE CLEAR URINE IN MOD AMTS WITH EACH VOID. AFEBRILE. DENIES FLANK PAIN.
--- NOTE | 2022-08-21 06:54 | NUR ---
Shift report received from fast food shift lead RN. Per report, pt up to void Q30 min to 1 hr during the night. Urine clear, yellow. Pt reported this has been ongoing since prostate surgery. Will discuss with Dr. Mckenzie.
--- NOTE | 2022-08-21 09:21 | NUR ---
Pt supervised as he stood independently from bed and ambulated to the bathroom using a FWW. Pt reporting Rt. knee and Rt. hip pain at 01/08. PRN pain medication given per PRN order. Gauze/tegaderm dressing to Rt. hip incision is CDI. Bruising noted to Rt. hip around incision and above the Rt. buttock. Pt denies additional needs at this time. Call light is in his reach. Pt resting in Lt. side lying position in bed. Bed alarm is on.
--- NOTE | 2022-08-21 09:33 | NUR ---
Rt. hip gauze/tegaderm dressing removed. Hip incision left ZIYAD except for 3 steristrips that are CDI.
--- NOTE | 2022-08-21 10:56 | NUR ---
Pt is off the unit to work w/ PT.
--- NOTE | 2022-08-21 15:55 | NUR ---
Pt supervised as he stood up from bed and ambulated to the bathroom using a FWW. Steristrips to Rt. hip incision remain CDI. Scheduled Tylenol given. Pt denies additional needs at this time. Call light is in his reach. Bed alarm is on.
--- NOTE | 2022-08-21 15:56 | NUR ---
CELESTE met with the patient to complete intake, as the patient is new to [facility]. The patient lives alone in [place]. He reports independence with ADLs before his fracture and has a cane and walker. The patient's PCP is Dr. Kain Azevedo and he receives his medications from a mail order. The patient does not have a DPOA-HC, but was interested in obtaining a form. He states that he is not and has 11 children. He states that he has not talked to them in years though. CELESTE inquired who is person to notify and next of kin is that is listed in EMR: Yanelis Marko. The patient states that Yanelis is his qprutz-va-pav, but Yanelis told him to lose her number recently and they are not on good terms now. He would need to think about who he would designate. The team would like to set up a patient/family meeting. CELESTE addressed this with the patient. The patient states that he does not want to do this. CELESTE updated IPR Director.
[2022-08-21 17:18] VITALS: BP 183/104; PULSE 72; TEMP 98
--- NOTE | 2022-08-21 17:20 | NUR ---
Pt resting supine in bed. Refused dinner tray. Salad, fruit, cookie left at the bedside. Pt agreeable to drinking a carton of milk (236 mL). Pt reporting he didn't sleep well last night and "just wants to sleep". BP elevated at 183/104. Dr. Mckenzie aware. Now order received for Zestril 20mg tablet and was given as ordered. Pt denies MADISON, chest pain, or general/pain or discomfort. Denies additional needs. Call light is in his reach. Bed alarm is on.
--- NOTE | 2022-08-21 19:46 | NUR ---
pt assisted to bathroom, incontinent of urine. pm meds given and assessment complete. pt denies pain in the right hip. steri strips are in place. some bruising present. juma hose to BLE. INT to right hand. pt denies needs. call light in reach.
[2022-08-22 04:13] VITALS: BP 161/90; PULSE 68; TEMP 97.5
--- NOTE | 2022-08-22 05:28 | NUR ---
pt up quite a few times in the night needed to go to the bathroom but overall felt like he slept better. denies pain. call light in reach.
--- NOTE | 2022-08-22 06:51 | NUR ---
shift report received from ROSA ISELA Heller
--- NOTE | 2022-08-22 07:45 | NUR ---
appears to be sleeping, awakened and am meds given and full assessment completed, see interventions for further info, informed him breakfast was at bedside and he refuses at this time
--- NOTE | 2022-08-22 09:15 | NUR ---
physical therapy in to work with segun
--- NOTE | 2022-08-22 09:54 | NUR ---
resting in bed between therapy sessionsy
--- NOTE | 2022-08-22 11:00 | NUR ---
physical therapist in to work with patinet, she reported that the patinet c/o sharp pain and she had to sit him back down, then he stated he just felt "funny", therapist obtained BP sitting 152/85, P 63, BP standing, 135/68, P 66, when checked on patinet he was in BR and having bowel movement and states he is feeling better
--- NOTE | 2022-08-22 11:37 | NUR ---
Has lack of transportation kept you from medical appts, meetings, work, or from getting things needed for daily living? NO How often do you feel lonely or isolated from those around you? SOMETIMES Over the past 5 days, how much of the time has pain made it hard for you to sleep? RARELY/NOT AT ALL Over the past 5 days, how often have you limited your participation in therapy due to pain? OCCASIONALLY Over the past 5 days, how often have you limited your day-to-day activities because of pain? RARELY/NOT AT ALL Have you had 2 or more falls in the past year or any fall with an injury? YES Did you have major surgery during the 100 days prior to admission? YES
--- NOTE | 2022-08-22 12:00 | NUR ---
lunch tray taken to bedside, states he isn't hungry right now that he ate breakfast late, tray left at bedside
--- NOTE | 2022-08-22 13:10 | NUR ---
out of room with therapist for group therapy
--- NOTE | 2022-08-22 15:38 | NUR ---
in bed and appears to be sleepoing, resp quiet and easy
--- NOTE | 2022-08-22 16:19 | NUR ---
assisted up to bathroom and medicated with scheduled tylenol for some pain/discomfort
[2022-08-22 17:30] VITALS: BP 147/79; PULSE 72; TEMP 97.8
--- NOTE | 2022-08-22 17:39 | NUR ---
supper at bedside, patient continues to sleep
--- NOTE | 2022-08-22 18:22 | NUR ---
appears to continue to sleep
--- NOTE | 2022-08-22 18:34 | NUR ---
shift report given to ROSA ISELA Heller
--- NOTE | 2022-08-22 20:41 | NUR ---
pt asleep upon entry, easily awaken. meds given and assessment complete. pt denies pain in the right hip. vss. denies any needs. call light in reach.
[2022-08-23 05:16] VITALS: BP 162/83; PULSE 64; TEMP 98.4
[2022-08-23 06:56] LABS: BASO # 0.1 K/mm3 (0.0-0.2); BASO % 0.9 % (0.0-2.0); EOS # 0.4 K/mm3 (0.0-0.7); EOS % 4.2 % (0.0-4.0); GRAN # 6.9 K/mm3 (1.4-6.5); GRAN % 67.5 % (42.2-75.2); HEMATOCRIT 37.5 % (42.0-52.0); HEMOGLOBIN 12.3 g/dl (13.5-18.0); LYMPH # 1.7 K/mm3 (1.2-3.4); LYMPH % 16.7 % (20.0-51.0); MEAN CELL VOLUME 90 fl (80.0-100.0); MEAN CORPUSCULAR HEMOGLOBIN 30 pg (27-31); MEAN CORPUSCULAR HGB CONC 33 g/dl (33.0-37.0); MEAN PLATELET VOLUME 10.6 fl (7.4-10.4); MONO % 9.4 % (1.7-9.3); PLATELET COUNT 207 K/mm3 (130-400); RED BLOOD COUNT 4.17 M/mm3 (4.20-5.60); REDCELL DISTRIBUTION WIDTH-CV 13.1 % (11.5-14.5)
[2022-08-23 07:05] LABS: CALCIUM 10.1 mg/dL (8.4-10.2); CREATININE, serum 1.26 mg/dL (0.72-1.25); POTASSIUM 3.9 mmol/L (3.5-4.5)
--- NOTE | 2022-08-23 15:07 | NUR ---
CELESTE met with the patient to present and review the IPR Team Conference Note. The team has set a discharge for next Sunday, 08/28, with home health PT/OT. They recommend a FWW and shower chair. The patient in agreement to the plan. He states that he will need a FWW and that he is agreeable with ordering it from [facility]. He provides that he can get a shower chair. CELESTE provided him with Medicare.gov's list of home health agencies that serve [place]. The patient states that he has information on [facility] already and would like to go ahead and use them. He states that he will call some friends this weekend to see if they can transport him home on Sunday.
[2022-08-23 17:43] VITALS: BP 140/78; PULSE 64; TEMP 98.4
--- NOTE | 2022-08-23 19:14 | NUR ---
Pt with increased pain today requiring PRN narcotics as well as scheduled Tylenol. Pt reports pain is tolerable and able to complete therapies and ADL's. Placed pt on house trays as he was not eating because he "didn't want to have to make decisions about what to eat". R hip incision well approximated, no drainage, bruising to R buttock and R upper lateral thigh.
--- NOTE | 2022-08-23 21:00 | NUR ---
PT RESTING IN BED. ASSISTED TO SIDE OF BED TO VOID PER URINAL. URGENCY. PT RELATES LEVEL 1-2 RT GROIN/HIP PAIN. TAKES SCHEDULED TYLENEOL. ABLE TO GET OUT OF BED PER SELF AND GET DAMIAN INTO BED PER SELF. CALL LIGHTIN REACH. BED ALARM SET.
[2022-08-24 05:57] VITALS: BP 144/78; PULSE 60; TEMP 98.1
--- NOTE | 2022-08-24 13:59 | NUR ---
CELESTE contacted and faxed the FWW order to Mac at [facility]. CELESTE attempted to contact Xiang at [facility]. CELESTE left her a voicemail and faxed over the referral. Awaiting screen.
--- NOTE | 2022-08-24 14:19 | NUR ---
Admission QIM scores were reviewed by the team. Code of 4 chosen for toilet hygiene was determined by team discussion to be the most usual performance before interventions for this patient during the assessment period. Code of 4 chosen for toilet transfer was determined by team discussion to be the most usual performance before interventions for this patient during the assessment period. Code of 3 chosen for putting on/taking off footwear was determined by team discussion to be the most usual performance before interventions for this patient during the assessment period. Code of 4 chosen for sit to lying was determined by team discussion to be the most usual performance before interventions for this patient during the assessment period. Code of 6 chosen for lying to sitting on side of bed was determined by team discussion to be the most usual performance before interventions for this patient during the assessment period. Code of 4 chosen for sit to stand was determined by team discussion to be the most usual performance for this patient during the discharge assessment period. Code of 4 chosen for walk 50 feet w/ 2 turns was determined by team discussion to be the most usual performance before interventions for this patient during the assessment period.--PD Tiffanie
[2022-08-24 17:11] VITALS: BP 138/68; PULSE 64; TEMP 98.2
--- NOTE | 2022-08-24 20:45 | NUR ---
PT RESTING IN BED. ASSISTED TO BR W/ WALKER. VOIDING W/O DIFFICULTY. NO NEEDS AT THIS TIME. CALL LIGHT IN REACH. BED ALARM SET.
[2022-08-25 06:25] VITALS: BP 136/70; PULSE 58; TEMP 97.5
--- NOTE | 2022-08-25 09:13 | NUR ---
PATIENT ALERT AND ORIENTED X4. VSS. PATIENT HERE FOR RIGHT HIP PINNING. PATIENT REPORTS PAIN 7/10, REQUESTS PAIN MEDICATION. PATIENT DROWSY, BUT AROUSABLE. ASSESSMENT PERFORMED. AM MEDS ADMINISTERED. PATIENT UP TO BEDSIDE TABLE TO EAT BREAKFAST. CALL LIGHT WITHIN REACH.
[2022-08-25 18:06] VITALS: BP 127/69; PULSE 64; TEMP 97.9
--- NOTE | 2022-08-25 19:20 | NUR ---
RECEIVED CHANGE OF SHIFT REPORT FROM DAY SHIFT RN.
[2022-08-25 21:00] VITALS: BP 137/79
[2022-08-25 21:13] VITALS: BP 115/52
[2022-08-26 05:02] VITALS: BP 135/87; PULSE 56; TEMP 98
--- NOTE | 2022-08-26 07:14 | NUR ---
CHANGE OF SHIFT REPORT GIVEN TO DAY SHIFT RNMELVINA.
--- NOTE | 2022-08-26 07:59 | NUR ---
Shift report received from director of outside sales RN. Pt sitting up on the side of the bed to eat breakfast. Pt feeds himself independently. Hip incision is well-approximated and is w/out redness/swelling. He denies pain/discomfort at this time. Call light is in his reach. Bed alarm is on.
--- NOTE | 2022-08-26 09:24 | NUR ---
Pt is off the unit for Group Therapy.
--- NOTE | 2022-08-26 12:23 | NUR ---
Pt supervised as he stood up from bed to FWW independently to ambulate to the bathroom. Pt reporting Rt. hip pain - pain medication given per PRN order. Pt back in bed after toileting. Denies additional needs. Call light is in his reach. Bed alarm is on.
[2022-08-26 17:16] VITALS: BP 122/77; PULSE 57; TEMP 97.8
--- NOTE | 2022-08-26 21:23 | NUR ---
PT SITTING AT EDGE OF BED DRINKING BROTH. TAKES HS MEDS WITH MILK. DENIES NEED FOR EXTRA PAIN MEDS AT THIS TIME. RT HIP INCISION APPROXIMATED WELL, NO DRSG.
--- NOTE | 2022-08-27 04:09 | NUR ---
MEDICATED WITH OXYCODONE 10MG PO FOR RT HIP PAIN.
[2022-08-27 05:02] VITALS: BP 137/67; PULSE 56; TEMP 98.1
--- NOTE | 2022-08-27 06:47 | NUR ---
Shift report received from senior electronics engineer RN.
--- NOTE | 2022-08-27 11:33 | NUR ---
Pt sleeping supine in bed and arouses easily from sleep. Pt ate 100% of breakfast independently. He has required supervision for independently standing up from bed and ambulating to the bathroom w/ a FWW. Right hip incision approximated w/ steristrips that are CDI. He currently denies pain/discomfort. Continues on scheduled ES Tylenol for pain control. Other needs denied. Call light is in his reach. Bed alarm is on.
--- NOTE | 2022-08-27 14:35 | NUR ---
Pt supervised as he stood from bed and ambulated to the bathroom using a FWW and then returned back to bed. Pt watching television. Denies pain or discomfort. Rt. hip incision w/ CDI steristrips. He denies other needs. Call light is w/in his reach. Bed alarm is on.
[2022-08-27 17:02] VITALS: BP 142/84; PULSE 60; TEMP 98.4
[2022-08-28 05:25] VITALS: BP 159/71; PULSE 53; TEMP 97.9
--- NOTE | 2022-08-28 06:51 | NUR ---
BEDSIDE REPORT DONE ORDER WITH NIGHT NURSE JENNIFER.
--- NOTE | 2022-08-28 10:33 | NUR ---
ASSESSMENT DONE ORDER. PATIENT ALERT AND ORIENTED. THERAPY GOING WELL WITH HIM. PATIENT WILL BE DISCHARGE TOMORROW. LUNG CLEAR IN ALL LOBES. BOWEL SOUND ACTIVE. NO EDEMA N OTED THIS AM. ASK FOR PAIN MEDICATION SINCE THERAPY HAS BEEN SLIGHTY HARD ON HIM.
--- NOTE | 2022-08-28 11:11 | NUR ---
SW met with the patient to follow up and review the discharge plan for tomorrow. The patient states that he is ready to get home, but will need a ride home. He states that he has not been able to get a hold of any of his friends. CELESTE presented and read the IM form outloud to him. The patient verbalized understanding and signed the form. SW provided him with a copy.
--- NOTE | 2022-08-28 13:14 | NUR ---
Has lack of transportation kept you from medical appts, meetings, work, or from getting things needed for daily living? NO How often do you feel lonely or isolated from those around you? RARELY Over the past 5 days, how much of the time has pain made it hard for you to sleep? RARELY OR NOT AT ALL Over the past 5 days, how often have you limited your participation in therapy due to pain? RARELY OR NOT AT ALL Over the past 5 days, how often have you limited your day-to-day activities because of pain? RARELY OR NOT AT ALL
[2022-08-28 17:17] VITALS: BP 131/79; PULSE 57; TEMP 97.9
--- NOTE | 2022-08-28 18:22 | NUR ---
PATIENT WILL BE DISCHARGE TOMORROW. APPOINTMENT SET FOR PATIENT TO SEE PCP AND OTHRO.PATIENT HAD PAIN TODAY WHICH MEDICATION WAS GIVEN IN THE AM BUT NO PAIN AFTERWARD
[2022-08-29 05:22] VITALS: BP 156/82; PULSE 53; TEMP 98.6
--- NOTE | 2022-08-29 06:47 | NUR ---
ASSESSMENT DONE ORDER WITH NIGHT NURSE.
[2022-08-29] MEDS ORDERED: LIPITOR 40MG TA40 MG PO (09:41)
[2022-08-29] MEDS ORDERED: ASPI325T6 PO (09:41)
[2022-08-29] MEDS ORDERED: LOPRESSOR100 MG PO (09:41)
[2022-08-29] MEDS ORDERED: MELATIN 3 MG-11 TAB PO (09:42)
[2022-08-29] MEDS ORDERED: ZESTRIL40 MG PO (09:43)
[2022-08-29] MEDS ORDERED: ROXICODONE 55 MG/TAB PO (09:44)
--- NOTE | 2022-08-29 09:59 | NUR ---
ASSESSMENT DONE ORDER. PATIENT GOING HOME TODAY . PATIENT WAS ABLE TO GET UP TO WASH FACE AND TEETH. USE WALKER FOR STABILITY. NO CONCERN AT THIS TIME. NO PAIN AT THIS TIME
--- NOTE | 2022-08-29 13:26 | NUR ---
Discharge QIM scores were reviewed by the team. Code of 6 chosen for toilet transfer was determined by team discussion to be the most usual performance for this patient during the discharge assessment period. Code of 6 chosen for sit to stand was determined by team discussion to be the most usual performance for this patient during the discharge assessment period. Code of 6 chosen for chair/bed to chair transfer was determined by team discussion to be the most usual performance for this patient during the discharge assessment period. Code of 4 chosen for walk 150 feet was determined by team discussion to be the most usual performance for this patient during the discharge assessment period.--Annita Palacios,
--- NOTE | 2022-08-29 13:40 | NUR ---
PATIENT WAS DISCHARGE AT 110PM. PATIENT WAS EDUCATED ABOUT UPCOMING APPOINTMENT AND MEDICATION. EDUCATION TO USE WALKER AT ALL TIME. PATIENT HAD NO QUESTION AT THETIME.
--- NOTE | 2022-08-29 13:46 | NUR ---
LILIA delivered the FWW to the patient's room. IPR Director notified SW that the patient is needing assistance with his meds. SW met with the patient. He states that he does not get paid until Sunday. The hospitalist transmitted the patient's scripts to [facility]. CELESTE contacted Bruno at [facility] for a med voucher. Bruno states that they have the patient's insurance on file and he would not have a co-pay with any of the scripts that were sent over. SW inquired if they can deliver the meds to the patient's home. Bruno states that they can, but that the patient will need to contact them, once he gets home. CELESTE met with the patient to update on the above. The patient verbalized understanding. CELESTE provided the patient's with [facility]'s phone number. The patient also confirmed he needs a ride home. CELESTE booked the patient and Uber ride home. CELESTE updated the RN. The patient discharged back home today, 08/29, with home health services for jail/PT/OT from [facility]. CELESTE notified and faxed orders to Xiang at [facility]. No additional needs at this time.
== END 2022-08-29 13:10 | disposition home health service (06) | DRG 561 ==
PROVIDERS: ADMIT Physical Medicine & Rehabilitation Sports Medicine
DX: S72.011D Unspecified intracapsular fracture of right femur, subsequent encounter for closed fracture with routine healing (principal); I16.0 Hypertensive urgency; I10 Essential (primary) hypertension; R74.01 Elevation of levels of liver transaminase levels; N28.9 Disorder of kidney and ureter, unspecified; D72.828 Other elevated white blood cell count; N40.1 Benign prostatic hyperplasia with lower urinary tract symptoms; R35.0 Frequency of micturition; G47.00 Insomnia, unspecified; E87.6 Hypokalemia; E78.5 Hyperlipidemia, unspecified; E11.9 Type 2 diabetes mellitus without complications; F32.A Depression, unspecified; C61 Malignant neoplasm of prostate; R26.89 Other abnormalities of gait and mobility; Z91.030 Bee allergy status; Z79.84 Long term (current) use of oral hypoglycemic drugs; Z79.899 Other long term (current) drug therapy; Z79.82 Long term (current) use of aspirin; W18.09XD Striking against other object with subsequent fall, subsequent encounter; Y92.009 Unspecified place in unspecified non-institutional (private) residence as the place of occurrence of the external cause; Z73.6 Limitation of activities due to disability
CPT/HCPCS: A9284